=== PATIENT | female | born 1945 | race Caucasian/White ===

== ENCOUNTER 2025-03-05 09:40 | Outpatient (CLI) | payer MEDICARE, OTHER ==
[~2025-03-05 09:40] MED LIST: ATOR20TA66 PO; CELE200C PO; CYCL-920 PO; ENAL1TAB10 PO; ESTR1PAT60 TD; LEVO100T9 PO; MULT-620 PO; TRAM50TA2 PO; VITE1000C PO
--- NOTE | 2025-03-05 11:36 | RADIOLOGY REPORT ---
EXAM: DI TIB/FIB 2 VWS CLINICAL INDICATION: WOUND, CELLULITIS,LEFT TECHNIQUE: DI TIB/FIB 2 VWS Comparison: None FINDINGS/IMPRESSION: There is no evidence of acute fracture or dislocation. The visualized joint space is well maintained. The alignment is anatomical. There is no radiopaque foreign body.
== END 2025-03-05 23:59 | disposition home or self-care (01) ==
LOC: RAD 09:40
PROVIDERS: ATTEND Nurse Practitioner Family
DX: L03.90 Cellulitis, unspecified (principal); W54.8XXA Other contact with dog, initial encounter; Y93.89 Activity, other specified; Y92.89 Other specified places as the place of occurrence of the external cause; Y99.8 Other external cause status
CPT/HCPCS: 73590